=== PATIENT | female | born 1955 | race Caucasian/White ===

== ENCOUNTER → 2019-06-30 | Outpatient (CLI) | payer MEDICARE, OTHER ==
[~2019-06-30] MED LIST: ESTR2
[2019-07-05 13:18] LABS: M-SPIKE, % Not Observed % (Not Observed); PROTEIN,TOTAL,URINE 4.4 mg/dL (Not Estab.)
== END | disposition home or self-care (01) ==
LOC: LAB 07:36 → LAB SHORT 07:36 → LAB FUT 06-26 12:30
PROVIDERS: Internal Medicine
DX: Z00.01 Encounter for general adult medical examination with abnormal findings (principal)
CPT/HCPCS: 81050; 84166

== ENCOUNTER 2025-11-07 07:38 | Day surgery (SDC) | payer OTHER ==
[~2025-11-07] VITALS: Ht 149.9 cm; Wt 46.2 kg
[~2025-11-07 07:38] MED LIST changes: +Balanced Salt Epinephrine Irrigation Solution 500 mL IR SCH; +Moxifloxacin HCL 0.5 MG/0.1 ML 0.4MLSYR RIGHTEYE SCH; +Ondansetron 4 MG SoluTab MM PRN; +PHENYLEPHRINE\\TROPICAMIDE\\TETRACAINE OPHTHALMIC DILATING SOLN RIGHTEYE PRN; +Povidone-Iodine 450 DROP/30 ML Solution ONE; +Povidone-Iodine 450 DROP/30 ML Solution RIGHTEYE SCH; +Tetracaine HCl/Pf 0.5% Opth Soln 4 ml ONE
--- NOTE | 2025-11-07 08:55 | NUR ---
11/07/25 0855 Kaleigh Hernandez 100/69 68 100% 16
[2025-11-07 09:01] VITALS: BP 99/66
--- NOTE | 2025-11-07 09:09 | NUR ---
11/07/25 0909 Ammy Martin PT DENIES ANY PAIN OR DISCOMFORT TO R EYE. PT ABLE TO TOLERATE FLUIDS WELL. PT DENIES ANY NAUSEA. PT'S AT SIDE OF RECLINER FOR DISCHARGE INSTRUCTIONS. PT'S VSS, PT PLEASANT AND COOPERATIVE WITH CARE PROVIDED.
== END 2025-11-07 09:07 | disposition home or self-care (01) ==
LOC: ORSCSDS 07:38
PROVIDERS: Student in an Organized Health Care Education/Training Program
PROC: 08RJ3JZ Replacement of Right Lens with Synthetic Substitute, Percutaneous Approach (ICD-10-PCS; principal; 2025-11-07 09:00)
DX: H25.813 Combined forms of age-related cataract, bilateral (principal)
CPT/HCPCS: A9270; V2632